=== PATIENT | female | born 1995 | race Caucasian/White ===

== ENCOUNTER 2018-11-20 23:16 | Emergency (ER) | payer OTHER ==
[2018-11-21] MEDS: ACETAMINOPHEN 500 MG TAB PO (00:41)
[2018-11-21] MEDS: KETOROLAC 30 MG INJ IM (00:41)
[2018-11-21] MEDS: LORAZEPAM 0.5 MG TAB PO (00:41)
== END 2018-11-21 01:51 | disposition home or self-care (01) ==
LOC: FTE 23:16
DX: R51 Headache (principal)
CPT/HCPCS: 81025; 96372; 99284-25